=== PATIENT | female | born 1940 | race Caucasian/White ===

== ENCOUNTER 2019-01-05 15:09 | Emergency (ER) | payer MEDICARE ==
[~2019-01-05 15:09] MED LIST: ASPI-555 PO; B CO1CAP PO; BUME1TAB12 PO; BUME2TAB18 PO; CARV3.12 PO; CHOL200012 PO; DIGO125T87 PO; DOCU100C33 PO; INSLAN SQ; INSREG SQ; ISOS30TA6 PO; MULT-1258 PO; NATE60TA8 PO; PANT40TA25 PO; RIVA15TA PO; SIMV40TA59 PO; VIT1CAPS47 PO
[2019-01-05] MEDS ORDERED: ACETAMINOPHEN EXTRA STRENGTH 500 MG TABLET ONE (15:35)
[2019-01-05] MEDS ORDERED: ONDANSETRON HCL 4 MG/2 ML VIAL ONE (15:35)
[2019-01-05] MEDS ORDERED: SODIUM CHLORIDE 0.9% 1000ML 1,000 ML IV ONE (15:35)
[2019-01-05 15:39] LABS: BASOPHILS % (AUTO) 0.7 % (0.0-5.0); HEMATOCRIT 33.5 % (36-48); MEAN CORPUSCULAR HEMOGLOBIN 30.3 pg (27.0-33.0); MEAN CORPUSCULAR HGB CONC 33.3 g/dL (32.0-36.0); MEAN CORPUSCULAR VOLUME 90.9 fL (79-99); MONOCYTES % (AUTO) 12.6 % (3.0-13.0); NEUTROPHILS % (AUTO) 59.7 % (40.0-77.0); PLATELET COUNT (AUTO) 238 K/uL (130-400); RED BLOOD CELL COUNT(AUTO) 3.68 MIL/uL (4.00-5.50); RED CELL DISTRIBUTION WIDTH 13.3 % (11.0-15.5); WHITE BLOOD COUNT (AUTO) 7.8 K/uL (4.8-10.8)
[2019-01-05 16:02] LABS: CREATININE 1.7 mg/dL (0.5-1.5); POTASSIUM 4.1 mmol/L (3.5-5.1)
[2019-01-05 16:07] LABS: ALBUMIN 3.8 g/dL (3.5-5.0); BILIRUBIN,TOTAL 0.6 mg/dL (0.2-1.0); TOTAL PROTEIN, SERUM 7.2 g/dL (6.0-8.3)
== END 2019-01-05 17:53 | disposition home or self-care (01) ==
LOC: EDH 15:09
DX: A08.4 Viral intestinal infection, unspecified (principal); I10 Essential (primary) hypertension; I25.10 Atherosclerotic heart disease of native coronary artery without angina pectoris; E11.9 Type 2 diabetes mellitus without complications; E78.5 Hyperlipidemia, unspecified; Z95.1 Presence of aortocoronary bypass graft; Z79.4 Long term (current) use of insulin
CPT/HCPCS: 36415; 71045; 80053; 85025; 87804 ×2; 96361; 96374; 99284; J2405; J7030

== ENCOUNTER → 2019-06-10 | Outpatient (CLI) | payer MEDICARE ==
[~2019-06-10] MED LIST changes: -BUME1TAB12 PO; +BUME1TAB6 PO; -BUME2TAB18 PO; +BUME2TAB5 PO; +PROP10DR15 OP; +VITA1CAP85 PO
== END | disposition home or self-care (01) ==
LOC: RAH 08:52
PROVIDERS: ATTEND Internal Medicine Cardiovascular Disease
DX: R16.0 Hepatomegaly, not elsewhere classified (principal)
CPT/HCPCS: 76700

== ENCOUNTER 2019-08-08 23:10 | Inpatient (IN) | payer MEDICARE | END 2019-08-14 12:35 | disposition home or self-care (01) | LOC: EDH 23:10 → 2AH 08-14 06:36 → EDHIP 08-09 03:33 → 2CV 08-13 09:31 → 3BH 08-09 05:53 → 2CH 08-13 15:20 → 3CH 08-09 05:54 | PROC: B2111ZZ Fluoroscopy of Multiple Coronary Arteries using Low Osmolar Contrast (ICD-10-PCS; principal; ~2019-08-08) | PROC: 02703DZ Dilation of Coronary Artery, One Artery with Intraluminal Device, Percutaneous Approach (ICD-10-PCS; ~2019-08-08) | PROC: B2131ZZ Fluoroscopy of Multiple Coronary Artery Bypass Grafts using Low Osmolar Contrast (ICD-10-PCS; ~2019-08-08) | PROC: B2151ZZ Fluoroscopy of Left Heart using Low Osmolar Contrast (ICD-10-PCS; ~2019-08-08) | DX: I25.110 Atherosclerotic heart disease of native coronary artery with unstable angina pectoris (principal); N17.9 Acute kidney failure, unspecified; I13.0 Hypertensive heart and chronic kidney disease with heart failure and stage 1 through stage 4 chronic kidney disease, or unspecified chronic kidney disease; I50.32 Chronic diastolic (congestive) heart failure; N18.4 Chronic kidney disease, stage 4 (severe); I25.10 Atherosclerotic heart disease of native coronary artery without angina pectoris; I48.0 Paroxysmal atrial fibrillation ==

== ENCOUNTER 2019-09-15 21:41 | Inpatient (IN) | payer MEDICARE ==
[~2019-09-15] VITALS: Ht 162.6 cm; Wt 57.1 kg
[~2019-09-15 21:41] MED LIST changes: +ACET-66 PO; -B CO1CAP PO; +DIPH25 PO; -DOCU100C33 PO; +FISH1CAP50 PO; +L.AC1CAP6 PO; +ONDA4TAB4 PO; +UBID200C18 PO
[2019-09-15] MEDS ORDERED: CLOPIDOGREL BISULFATE 75 MG TAB ONE (22:13)
[2019-09-15] MEDS ORDERED: NITROGLYCERIN 0.4 MG SL TAB SL ONE (22:14)
[2019-09-15 22:17] LABS: BASOPHILS % (AUTO) 0.6 % (0.0-5.0); EOSINOPHILS % (AUTO) 1.7 % (0.0-8.0); HEMATOCRIT 30.7 % (36-48); LYMPHOCYTES % (AUTO) 25.9 % (21.0-51.0); MEAN CORPUSCULAR HEMOGLOBIN 30.7 pg (27.0-33.0); MEAN CORPUSCULAR HGB CONC 33.9 g/dL (32.0-36.0); MEAN CORPUSCULAR VOLUME 90.5 fL (79-99); MONOCYTES % (AUTO) 7.3 % (3.0-13.0); NEUTROPHILS % (AUTO) 64.5 % (40.0-77.0); PLATELET COUNT (AUTO) 205 K/uL (130-400); WHITE BLOOD COUNT (AUTO) 10.2 K/uL (4.8-10.8)
[2019-09-15 22:23] LABS: POTASSIUM 3.7 mmol/L (3.5-5.1)
[2019-09-15 22:27] LABS: INR 1.15 (0.85-1.15); PARTIAL THROMBOPLASTIN TIME 29.6 SEC (26.3-35.5)
[2019-09-15 22:46] LABS: BILIRUBIN,TOTAL 0.5 mg/dL (0.2-1.0); CREATININE 1.8 mg/dL (0.5-1.5)
[2019-09-15 22:47] LABS: ALBUMIN 3.9 g/dL (3.5-5.0); TOTAL PROTEIN, SERUM 7.3 g/dL (6.0-8.3)
[2019-09-15] MEDS ORDERED: NITROGLYCERIN 1GM/1 INCH PACKET TD ONE (23:45)
[2019-09-16 01:42] LABS: CREATINE KINASE, TOTAL 90 U/L (21-232); MYOGLOBIN 79 ng/mL (10-92); TROPONIN I < 0.04 ng/mL (0.00-0.06)
[2019-09-16] MEDS ORDERED: CLOP75TA14 PO (02:28)
[2019-09-16 04:12] VITALS: BP 126/52
[2019-09-16 04:35] LABS: CREATINE KINASE, TOTAL 80 U/L (21-232); MYOGLOBIN 75 ng/mL (10-92); TROPONIN I < 0.04 ng/mL (0.00-0.06)
[2019-09-16] MEDS ORDERED: NITROGLYCERIN 1GM/1 INCH PACKET TD ONE (06:13)
[2019-09-16] MEDS ORDERED: ONDANSETRON 4 MG TABLET PO PRN (07:30)
[2019-09-16] MEDS ORDERED: ACETAMINOPHEN EXTRA STRENGTH 500 MG TABLET PO PRN (07:30)
[2019-09-16] MEDS ORDERED: DIPHENHYDRAMINE HCL 25 MG CAPSULE PO PRN (07:30)
[2019-09-16] MEDS ORDERED: SODIUM CHLORIDE 0.9% 1000ML 1,000 ML IV SCH (07:45)
[2019-09-16 08:00] VITALS: BP 141/64
[2019-09-16] MEDS: INSULIN HUMULIN R 100 UNIT/ML 3ML SQ SCH ×3 (08:00→17:15)
[2019-09-16] MEDS: NATEGLINIDE 60 MG PO SCH (09:00)
[2019-09-16] MEDS ORDERED: ASPIRIN 325MG EC TAB 325 MG TABLET.DR PO SCH (09:00)
[2019-09-16] MEDS: ARTIFICAL TEARS SOL 15 ML OP SCH ×3 (09:00→19:58)
[2019-09-16] MEDS: CO Q10 PO SCH (09:00)
[2019-09-16] MEDS: VITAMIN D3 PO SCH (09:00)
[2019-09-16] MEDS: PRESERVISION AREDS PO SCH ×2 (09:00→19:57)
[2019-09-16] MEDS: NITROGLYCERIN 1GM/1 INCH PACKET TD SCH ×3 (09:00→19:56)
[2019-09-16] MEDS: LACTOBACILLUS RHAMNOSUS GG 1 EACH CAP.SPRINK PO SCH (09:16)
[2019-09-16] MEDS: FISH OIL 1000 MG/CAP PO SCH (09:16)
[2019-09-16] MEDS: MULTIVITAMIN WITH MINERALS TABLET PO SCH (09:16)
[2019-09-16] MEDS: ISOSORBIDE MONO 30MG TAB SR PO SCH ×2 (09:17→19:55)
[2019-09-16] MEDS: BUMETANIDE 1 MG TAB PO SCH (09:17)
[2019-09-16] MEDS: DIGOXIN 125 MCG TABLET PO SCH (09:17)
[2019-09-16] MEDS: PANTOPRAZOLE SODIUM 40 MG TABLET.DR PO SCH (09:17)
[2019-09-16] MEDS: CLOPIDOGREL BISULFATE 75 MG TAB PO SCH (09:18)
[2019-09-16] MEDS: SIMVASTATIN 20 MG TABLET PO SCH (09:18)
[2019-09-16] MEDS: CARVEDILOL 3.125 MG TABLET PO SCH ×2 (09:19→19:56)
[2019-09-16] MEDS: SODIUM CHLORIDE 0.9% 1000ML 1,000 ML IV SCH ×2 (09:30→19:05)
--- NOTE | 2019-09-16 11:25 | NUR ---
CHEST PAIN PATIENT COMPLAINED OF CHEST PAIN. CLOTH MERCERIZER BACK TENDER REPORTED HR 80 V-PACED RHYTHM. PATIENT DESCRIBES PAIN A SLIGHT PRESSURE MAINLY ON THE CENTER OF HER CHEST. NITRO PATCH APPLIED PER EMAR. BP:154/75. WILL CONTINUE TO MONITOR CLOSELY.
[2019-09-16 12:00] VITALS: BP 142/65
--- NOTE | 2019-09-16 14:40 | NUR ---
DCP CM met with pt discussed dc plans. Pt is independent prior to admission, lives at home alone, daughter lives close by. Denies any equipments/services. Feels safe to go back home, still drives, daughter able to assist with transportation and needs as necessary. Offered possible short term placement rehab if MD recommends, pt declined at this time, prefers to go back home. DC plan to home once stable. CM to cont to follow up. Addendum: 09/16/19 at 1442 by RODRICK PAGE LVN CM Amended: Links added.
[2019-09-16] MEDS ORDERED: BUMETANIDE 1 MG TAB PO SCH (15:00)
[2019-09-16 16:00] VITALS: BP 132/63
[2019-09-16 16:24] LABS: HEMATOCRIT 31.2 % (36-48); MEAN CORPUSCULAR HGB CONC 33.5 g/dL (32.0-36.0); MEAN CORPUSCULAR VOLUME 89.4 fL (79-99); PLATELET COUNT (AUTO) 232 K/uL (130-400); RED BLOOD CELL COUNT(AUTO) 3.49 MIL/uL (4.00-5.50); RED CELL DISTRIBUTION WIDTH 14.4 % (11.0-15.5); WHITE BLOOD COUNT (AUTO) 8.1 K/uL (4.8-10.8)
[2019-09-16 16:41] LABS: CREATININE 1.5 mg/dL (0.5-1.5); MAGNESIUM 2.2 mg/dL (1.80-2.40); PHOSPHORUS 3.6 mg/dL (2.5-4.9); POTASSIUM 3.9 mmol/L (3.5-5.1); URIC ACID 9.2 mg/dL (2.6-7.2)
[2019-09-16 16:56] LABS: % IRON SATURATION 15.5 % (22-44)
[2019-09-16] MEDS ORDERED: INSULIN GLARGINE 100 UNITS/ML 10 ML VIAL SQ SCH (18:00)
[2019-09-16 20:11] VITALS: BP 148/53
[2019-09-16] MEDS ORDERED: ACETYLCYSTEINE 600 MG CAPSULE PO SCH (21:00)
[2019-09-17] VITALS (8 sets, daily range): BP systolic 134–169; BP diastolic 55–67
[2019-09-17] MEDS: NITROGLYCERIN 1GM/1 INCH PACKET TD SCH ×3 (03:21→15:11)
[2019-09-17] MEDS: SODIUM CHLORIDE 0.9% 1000ML 1,000 ML IV SCH ×2 (03:22→13:45)
[2019-09-17] MEDS ORDERED: HEPARIN SODIUM 1000UNIT/ML 10ML VIAL ONE (07:14)
[2019-09-17] MEDS ORDERED: NITROGLYCERIN 5 MG/ML 10 ML VIAL IV ONE (07:14)
[2019-09-17] MEDS ORDERED: IOHEXOL-350 50ML VIAL IV ONE (07:15)
[2019-09-17] MEDS ORDERED: IOHEXOL 350 MG/ML 100ML INFUS..BTL IV ONE (07:15)
[2019-09-17] MEDS ORDERED: MIDAZOLAM HCL 1 MG/ML 2ML VIAL ONE (07:15)
[2019-09-17] MEDS ORDERED: MEPERIDINE-PF 25 MG/ML SYG ONE (07:15)
[2019-09-17] MEDS ORDERED: LIDOCAINE HCL 2% 20ML ONE (07:16)
[2019-09-17 07:25] LABS: APPEARANCE,URINE Clear (CLEAR); BILIRUBIN,URINE Negative (NEGATIVE); COLOR,URINE Yellow (YELLOW); GLUCOSE, URINE (UA) Negative (NEGATIVE); KETONES,URINE Negative (NEGATIVE); LEUKOCYTE ESTERASE ,URINE Moderate (NEGATIVE); NITRATE,URINE Negative (NEGATIVE); OCCULT BLOOD,URINE Negative (NEGATIVE); PROTEIN,URINE Negative (NEGATIVE); UROBILINOGEN,URINE 0.2 mg/dL (0.2-1.0)
[2019-09-17] MEDS ORDERED: SODIUM BICARB 50MEQ 50ML VIAL ONE (07:38)
[2019-09-17 08:00] LABS: BACTERIA,URINE Rare /HPF (None Seen); RBC,URINE 0-1 /HPF (0-1); SQUAMOUS EPITHELIAL CELL,UR Rare /HPF (0-2)
[2019-09-17] MEDS: INSULIN HUMULIN R 100 UNIT/ML 3ML SQ SCH ×2 (08:00→11:51)
[2019-09-17] MEDS ORDERED: SODIUM CHLORIDE 0.9% 1000ML 1,000 ML IV SCH (08:27)
[2019-09-17] MEDS ORDERED: PHARMACY COMMUNICATION MISC SCH (08:30)
[2019-09-17] MEDS: VITAMIN D3 PO SCH (09:00)
[2019-09-17] MEDS: CO Q10 PO SCH (09:00)
[2019-09-17] MEDS: NATEGLINIDE 60 MG PO SCH (09:00)
[2019-09-17] MEDS: ARTIFICAL TEARS SOL 15 ML OP SCH ×2 (09:00→14:00)
[2019-09-17] MEDS: PRESERVISION AREDS PO SCH (09:00)
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
[2019-09-17] MEDS: ISOSORBIDE MONO 30MG TAB SR PO SCH (10:17)
[2019-09-17] MEDS: LACTOBACILLUS RHAMNOSUS GG 1 EACH CAP.SPRINK PO SCH (10:17)
[2019-09-17] MEDS: PANTOPRAZOLE SODIUM 40 MG TABLET.DR PO SCH (10:18)
[2019-09-17] MEDS: CARVEDILOL 3.125 MG TABLET PO SCH (10:18)
[2019-09-17] MEDS: FISH OIL 1000 MG/CAP PO SCH (10:18)
[2019-09-17] MEDS: MULTIVITAMIN WITH MINERALS TABLET PO SCH (10:18)
[2019-09-17] MEDS: CLOPIDOGREL BISULFATE 75 MG TAB PO SCH (10:19)
[2019-09-17] MEDS: DIGOXIN 125 MCG TABLET PO SCH (10:19)
[2019-09-17] MEDS: SIMVASTATIN 20 MG TABLET PO SCH (10:19)
[2019-09-17] MEDS: BUMETANIDE 1 MG TAB PO SCH (10:19)
[2019-09-17] MEDS ORDERED: NITROGLYCERIN 1GM/1 INCH PACKET TD SCH (12:00)
--- NOTE | 2019-09-17 18:13 | NUR ---
DISCHARGE PATIENT GIVEN DISCHARGE INSTRUCTIONS AND EDUCATION ON FOLLOW UP APPOINTMENTS AND ANGINA. PATIENT VERBALIZED UNDERSTANDING OF ALL EDUCATION GIVEN VIA TEACHBACK. NO CONCERNS VOICED. IV DISCONTINUED, CATHETER INTACT. PRESSURE APPLIED TO PREVENT BLEEDING. PATIENT LEFT VIA WHEELCHAIR, NURSE AT SIDE. NO DISTRESS NOTED UPON DISCHARGE. ALL BELONGINGS TAKEN WITH.
[2019-09-17] MEDS ORDERED: RIVAROXABAN 15 MG TABLET PO SCH (21:00)
== END 2019-09-17 18:00 | disposition home or self-care (01) | DRG 287 ==
LOC: EDH 21:41 → EDHIP 09-16 00:22 → 3AH 09-16 01:34
PROVIDERS: ADMIT Internal Medicine Hematology & Oncology; ATTEND Internal Medicine Hematology & Oncology
PROC: B218YZZ Fluoroscopy of Left Internal Mammary Bypass Graft using Other Contrast (ICD-10-PCS; principal; 2019-09-17)
PROC: B212YZZ Fluoroscopy of Single Coronary Artery Bypass Graft using Other Contrast (ICD-10-PCS; 2019-09-17)
PROC: 4A023N7 Measurement of Cardiac Sampling and Pressure, Left Heart, Percutaneous Approach (ICD-10-PCS; 2019-09-17)
PROC: B2111ZZ Fluoroscopy of Multiple Coronary Arteries using Low Osmolar Contrast (ICD-10-PCS; 2019-09-17)
DX: I25.110 Atherosclerotic heart disease of native coronary artery with unstable angina pectoris (principal); I24.9 Acute ischemic heart disease, unspecified; N18.4 Chronic kidney disease, stage 4 (severe); I13.0 Hypertensive heart and chronic kidney disease with heart failure and stage 1 through stage 4 chronic kidney disease, or unspecified chronic kidney disease; E11.22 Type 2 diabetes mellitus with diabetic chronic kidney disease; E78.5 Hyperlipidemia, unspecified; I48.91 Unspecified atrial fibrillation; I50.9 Heart failure, unspecified; E11.21 Type 2 diabetes mellitus with diabetic nephropathy; Z95.0 Presence of cardiac pacemaker; Z79.01 Long term (current) use of anticoagulants; Z95.1 Presence of aortocoronary bypass graft; Z95.5 Presence of coronary angioplasty implant and graft; Z88.6 Allergy status to analgesic agent; Z88.1 Allergy status to other antibiotic agents; Z88.0 Allergy status to penicillin; Z88.7 Allergy status to serum and vaccine; Z88.8 Allergy status to other drugs, medicaments and biological substances
CPT/HCPCS: 36415; 71045; 76770; 80048; 80053; 80162; 81001; 82550; 82948; 83540; 83550; 83735; 83874; 84100; 84484; 84550; 85025; 85027; 85610; 85730; 93005; 93459; C1760; C1894; G0378; J1644; J1815; J2175; J2250; J3490; Q9967

== ENCOUNTER 2019-10-01 16:54 | Inpatient (IN) | payer MEDICARE ==
[~2019-10-01] VITALS: Ht 162.6 cm; Wt 57.0 kg
[2019-10-01 17:48] LABS: EOSINOPHILS % (AUTO) 1.6 % (0.0-8.0); HEMATOCRIT 33.4 % (36-48); LYMPHOCYTES % (AUTO) 26.3 % (21.0-51.0); MEAN CORPUSCULAR HEMOGLOBIN 29.7 pg (27.0-33.0); MEAN CORPUSCULAR HGB CONC 33.2 g/dL (32.0-36.0); MEAN CORPUSCULAR VOLUME 89.5 fL (79-99); MONOCYTES % (AUTO) 7.2 % (3.0-13.0); NEUTROPHILS % (AUTO) 63.9 % (40.0-77.0); PLATELET COUNT (AUTO) 298 K/uL (130-400); RED BLOOD CELL COUNT(AUTO) 3.74 MIL/uL (4.00-5.50)
[2019-10-01 17:58] LABS: CREATININE 1.5 mg/dL (0.5-1.5); POTASSIUM 4.2 mmol/L (3.5-5.1)
[2019-10-01 18:00] LABS: INR 1.11 (0.85-1.15); PARTIAL THROMBOPLASTIN TIME 31.5 SEC (26.3-35.5); PROTHROMBIN TIME 11.6 SEC (9.6-11.6)
[2019-10-01 18:01] LABS: APPEARANCE,URINE Clear (CLEAR); BILIRUBIN,URINE Negative (NEGATIVE); COLOR,URINE Yellow (YELLOW); GLUCOSE, URINE (UA) Negative (NEGATIVE); KETONES,URINE Negative (NEGATIVE); LEUKOCYTE ESTERASE ,URINE Negative (NEGATIVE); NITRATE,URINE Negative (NEGATIVE); OCCULT BLOOD,URINE Negative (NEGATIVE); PROTEIN,URINE Negative (NEGATIVE); UROBILINOGEN,URINE 0.2 mg/dL (0.2-1.0)
[2019-10-01 18:03] LABS: ALBUMIN 4.1 g/dL (3.5-5.0); BILIRUBIN,TOTAL 0.6 mg/dL (0.2-1.0); TOTAL PROTEIN, SERUM 7.8 g/dL (6.0-8.3)
[2019-10-01 18:29] LABS: B-TYPE NATRIURETIC PEPTIDE 274 pg/mL (0-100)
[2019-10-01] MEDS ORDERED: FAMOTIDINE/PF 20 MG/2 ML VIAL IV ONE (21:30)
[2019-10-01 23:00] VITALS: BP 153/68
[2019-10-02 04:00] VITALS: BP 153/67
[2019-10-02] MEDS ORDERED: SODIUM CHLORIDE 0.9% 1000ML 1,000 ML IV SCH (04:15)
[2019-10-02 05:52] LABS: BASOPHILS % (AUTO) 1.2 % (0.0-5.0); EOSINOPHILS % (AUTO) 1.6 % (0.0-8.0); HEMATOCRIT 33.5 % (36-48); LYMPHOCYTES % (AUTO) 25.6 % (21.0-51.0); MEAN CORPUSCULAR HEMOGLOBIN 29.8 pg (27.0-33.0); MEAN CORPUSCULAR HGB CONC 33.1 g/dL (32.0-36.0); MEAN CORPUSCULAR VOLUME 90.3 fL (79-99); MONOCYTES % (AUTO) 7.5 % (3.0-13.0); NEUTROPHILS % (AUTO) 64.1 % (40.0-77.0); PLATELET COUNT (AUTO) 263 K/uL (130-400); RED BLOOD CELL COUNT(AUTO) 3.72 MIL/uL (4.00-5.50); RED CELL DISTRIBUTION WIDTH 13.9 % (11.0-15.5); WHITE BLOOD COUNT (AUTO) 7.8 K/uL (4.8-10.8)
[2019-10-02 06:06] LABS: ALBUMIN 3.5 g/dL (3.5-5.0); BILIRUBIN,TOTAL 0.7 mg/dL (0.2-1.0); CREATININE 1.5 mg/dL (0.5-1.5); POTASSIUM 3.8 mmol/L (3.5-5.1); TOTAL PROTEIN, SERUM 6.9 g/dL (6.0-8.3)
[2019-10-02] MEDS ORDERED: SODIUM CHLORIDE 0.9% 1000ML 1,000 ML IV ONE (06:38)
[2019-10-02 08:00] VITALS: BP 163/65
--- NOTE | 2019-10-02 08:16 | NUR ---
NOTIFIED DR. GUZMAN OF THE CONSULT HE VERBALIZED THAT HE WILL COME SEE THE PATIENT IN THE AFTERNOON.
[2019-10-02] MEDS ORDERED: MORPHINE SULFATE 2 MG/ML 1ML SYG IM PRN (08:30)
[2019-10-02] MEDS: FAMOTIDINE/PF 20 MG/2 ML VIAL IV SCH (09:00)
[2019-10-02] MEDS ORDERED: ONDANSETRON ODT 4 MG TAB SL PRN (09:45)
[2019-10-02 12:00] VITALS: BP 142/54
--- NOTE | 2019-10-02 12:17 | NUR ---
DCP CM met with pt discussed dc plans. Pt is independent prior to admission, lives at home alone, family lives close by, son lives [place]. Pt has a walker, shower chair, wheelchair, cpap. Pt states she used to have O2 but the Dr told her she no longer needs it and was returned to [facility]. Patient states she has 3 children w/POA #1dauter Latisha Rojas [phone], #2 son Narciso [phone], #3 Adrian Rojas . Feels safe to go back home, family able to assist with transportation and needs as necessary. DC plan to home once stable. CM to cont to follow up. Addendum: 10/02/19 at 1221 by RODRICK PAGE LVN CM Amended: Links added.
[2019-10-02 16:00] VITALS: BP 133/64
--- NOTE | 2019-10-02 16:15 | NUR ---
U/S PSEUDOANEURYSM REPAIR ORDERED. NOT DONE ULTRASOUND OF THE RIGHT GROIN PERFORMED ON 10/01/19. CALLED AND SPOKE TO DR. GOMEZ RESULTS OF ULTRASOUND GIVEN TO DR. GOMEZ. DR. GOMEZ STATES, "TOO RISKY TO PERFORM A PSEUDOANEURYSM AND REPEAT AN ULTRASOUND OF RIGHT GROIN PSEUDOANEURYSM ON Saturday10/05/19. CALLED REPORT TO ALEXANDRO WALLACE.
--- NOTE | 2019-10-02 16:32 | NUR ---
notified dr. devine that ir notified me that dr. lamar the interventional radiologist will not do intervention at this point, recommends repeat US of the right groin on saturday10/05/19
[2019-10-02 19:10] VITALS: BP 157/65
[2019-10-03] VITALS (10 sets, daily range): BP systolic 143–172; BP diastolic 56–76
--- NOTE | 2019-10-03 08:32 | NUR ---
PATIENT UPDATE No complaints of rt groin pain overnight, no chest pain, no shortness of breath. Anticoagulants on hold as per the order of the psychosocial rehabilitation counselor, pending repeat ultrasound Saturday to reassess the status. Pt voiced out need to take her meds back, will remind md today on rounds.
[2019-10-03] MEDS: FAMOTIDINE/PF 20 MG/2 ML VIAL IV SCH (09:11)
[2019-10-03] MEDS: ACETAMINOPHEN EXTRA STRENGTH 500 MG TABLET PO PRN (13:31)
[2019-10-03] MEDS: PROPYLENE GLYCOL OP SCH ×2 (14:00→20:49)
[2019-10-03] MEDS ORDERED: NITROGLYCERIN 0.4 MG SL TAB SL ONE (15:40)
[2019-10-03] MEDS ORDERED: NITROGLYCERIN 0.4 MG SL TAB SL PRN (16:00)
[2019-10-03] MEDS: MULTIVITAMINS/MINERALS/IRO TAB PO SCH (17:00)
[2019-10-03] MEDS: INSULIN GLARGINE 100 UNITS/ML 10 ML VIAL SQ SCH ×2 (17:24→17:28)
[2019-10-03] MEDS: DIGOXIN 125 MCG TABLET PO SCH (17:34)
[2019-10-03] MEDS: ISOSORBIDE MONO 30MG TAB SR PO SCH (20:45)
[2019-10-03] MEDS: SIMVASTATIN 20 MG TABLET PO SCH (20:45)
[2019-10-03] MEDS: CARVEDILOL 3.125 MG TABLET PO SCH (20:46)
[2019-10-03] MEDS ORDERED: BUMETANIDE 1 MG TAB PO SCH (21:00)
[2019-10-04 03:41] VITALS: BP 137/59
[2019-10-04 07:00] VITALS: BP 116/58
[2019-10-04] MEDS: MULTIVITAMINS/MINERALS/IRO TAB PO SCH ×2 (08:00→17:00)
[2019-10-04] MEDS: BUMETANIDE 1 MG TAB PO SCH ×2 (08:17→17:00)
[2019-10-04] MEDS: FISH OIL 1000 MG/CAP PO SCH (08:18)
[2019-10-04] MEDS: MULTIVITAMIN WITH MINERALS TABLET PO SCH (08:18)
[2019-10-04] MEDS: ISOSORBIDE MONO 30MG TAB SR PO SCH ×2 (08:18→22:20)
[2019-10-04] MEDS: FAMOTIDINE/PF 20 MG/2 ML VIAL IV SCH (08:19)
[2019-10-04] MEDS: PROPYLENE GLYCOL OP SCH ×3 (09:00→21:00)
[2019-10-04] MEDS: NATEGLINIDE 60 MG PO SCH (09:00)
[2019-10-04] MEDS: UBIDECARENONE 200 MG PO SCH (09:00)
[2019-10-04] MEDS: CHOLECALCIFEROL 2000 UNIT PO SCH (09:00)
--- NOTE | 2019-10-04 09:00 | NUR ---
DISCUSSED DISPOSTION WITH ALEXANDRO WHO STATES PT IS IND; APPEARS SAFE TO DC TO HOME. YOHANA SARAVIA CONSULT TODAY FOR PSUEDO ANEURYSM Addendum: 10/04/19 at 1555 by KASIA FLOYD RN CM Amended: Links added.
[2019-10-04] MEDS: LACTOBACILLUS RHAMNOSUS GG 1 EACH CAP.SPRINK PO SCH (09:31)
[2019-10-04] MEDS: CARVEDILOL 3.125 MG TABLET PO SCH ×2 (09:31→22:21)
[2019-10-04] MEDS ORDERED: POLYETHYLENE GLYCOL 3350 17 GM POWD.PACK ONE (09:33)
[2019-10-04 11:00] VITALS: BP 134/60
[2019-10-04] MEDS: ACETAMINOPHEN EXTRA STRENGTH 500 MG TABLET PO PRN (11:48)
[2019-10-04 16:00] VITALS: BP 128/66
[2019-10-04] MEDS ORDERED: DiphenhydrAMINE HCL 50 MG/ML VIAL IV PRN (16:15)
[2019-10-04] MEDS: DIGOXIN 125 MCG TABLET PO SCH (17:01)
[2019-10-04] MEDS: INSULIN GLARGINE 100 UNITS/ML 10 ML VIAL SQ SCH (18:00)
--- NOTE | 2019-10-04 19:30 | NUR ---
STATUS Received report from Jocelynn Mejias,pt appears drowsy,as per day nurse she gave her Benadryl earlier.Pt denies pain or sob.Aware of pending surgery in am.Instructed resident program specialist re pre op shower/clipping and Npo after midnight status.
[2019-10-04 20:00] VITALS: BP 159/62
[2019-10-04] MEDS: SIMVASTATIN 20 MG TABLET PO SCH (22:20)
[2019-10-04] MEDS: POLYETHYLENE GLYCOL 3350 17 GM POWD.PACK PO SCH (22:21)
[2019-10-05] VITALS (25 sets, daily range): BP systolic 109–153; BP diastolic 45–76
[2019-10-05 06:13] LABS: BASOPHILS % (AUTO) 0.4 % (0.0-5.0); EOSINOPHILS % (AUTO) 0.5 % (0.0-8.0); HEMATOCRIT 27.8 % (36-48); LYMPHOCYTES % (AUTO) 17.4 % (21.0-51.0); MEAN CORPUSCULAR HEMOGLOBIN 30.3 pg (27.0-33.0); MEAN CORPUSCULAR HGB CONC 33.8 g/dL (32.0-36.0); MEAN CORPUSCULAR VOLUME 89.8 fL (79-99); MONOCYTES % (AUTO) 10.9 % (3.0-13.0); NEUTROPHILS % (AUTO) 70.8 % (40.0-77.0); PLATELET COUNT (AUTO) 221 K/uL (130-400); RED CELL DISTRIBUTION WIDTH 13.7 % (11.0-15.5); WHITE BLOOD COUNT (AUTO) 11.6 K/uL (4.8-10.8)
[2019-10-05 06:21] LABS: CREATININE 1.5 mg/dL (0.5-1.5); POTASSIUM 3.3 mmol/L (3.5-5.1)
--- NOTE | 2019-10-05 06:45 | NUR ---
SURGERY Pt taken to holding area per OR staff,pt awake,alert and oriented.Denies chest pain or discomfort.Or staff made aware of pt.s K+ level,states will let anesthesia know.
[2019-10-05] MEDS ORDERED: SODIUM CHLORIDE 0.9% 1000ML 1,000 ML IV ONE (06:50)
--- NOTE | 2019-10-05 06:50 | NUR ---
Report received Patient WAS TAKING off unit to holding area for surgery
[2019-10-05] MEDS ORDERED: PROPOFOL 10 MG/ML 20ML VIAL IV ONE (07:03)
[2019-10-05] MEDS ORDERED: ROCURONIUM 10MG/1ML SYR 10 MG/ML ML ONE (07:03)
[2019-10-05] MEDS ORDERED: FENTANYL CITRATE PF 50 MCG/1 ML 2ML VIAL ONE ×2 (07:03→10:02)
[2019-10-05] MEDS ORDERED: LIDOCAINE PF 2% 5ML ABBOJECT ONE (07:03)
[2019-10-05] MEDS: LACTOBACILLUS RHAMNOSUS GG 1 EACH CAP.SPRINK PO SCH (07:33)
[2019-10-05] MEDS: MULTIVITAMINS/MINERALS/IRO TAB PO SCH ×2 (07:33→18:01)
[2019-10-05] MEDS ORDERED: PHENYLEPHRINE HCL 10 MG/ML 1ML VIAL IV ONE (07:40)
[2019-10-05] MEDS ORDERED: CLINDAMYCIN 900 MG/D5% WATER 50 ML IV ONE (07:46)
[2019-10-05] MEDS: NATEGLINIDE 60 MG PO SCH (09:00)
[2019-10-05] MEDS: PROPYLENE GLYCOL OP SCH ×3 (09:00→21:00)
[2019-10-05] MEDS: CHOLECALCIFEROL 2000 UNIT PO SCH (09:00)
[2019-10-05] MEDS: FAMOTIDINE/PF 20 MG/2 ML VIAL IV SCH (09:00)
[2019-10-05] MEDS: FISH OIL 1000 MG/CAP PO SCH (09:00)
[2019-10-05] MEDS: ISOSORBIDE MONO 30MG TAB SR PO SCH ×2 (09:00→20:56)
[2019-10-05] MEDS: MULTIVITAMIN WITH MINERALS TABLET PO SCH (09:00)
[2019-10-05] MEDS: POLYETHYLENE GLYCOL 3350 17 GM POWD.PACK PO SCH (09:00)
[2019-10-05] MEDS: CARVEDILOL 3.125 MG TABLET PO SCH ×2 (09:00→20:57)
[2019-10-05] MEDS: BUMETANIDE 1 MG TAB PO SCH ×2 (09:00→18:01)
[2019-10-05] MEDS ORDERED: GLYCOPYRROLATE 1 MG/5 ML SYRINGE ONE (09:14)
[2019-10-05] MEDS ORDERED: NEOSTIGMINE 5MG/5ML SYR IV ONE (09:14)
[2019-10-05] MEDS ORDERED: ONDANSETRON HCL 4 MG/2 ML VIAL ONE (09:24)
--- NOTE | 2019-10-05 09:35 | NUR ---
PULSES TO BILATERAL FEET, PALPABLE. PT STABLE. Addendum: 10/05/19 at 1027 by KADE SIERRA RN RN Amended: Links added.
--- NOTE | 2019-10-05 09:50 | NUR ---
CHART REVIEWED, PT WILL BE TRANSFERRED TO PCCU POST OP. CM NOTES FORWARDED TO NEW CM
--- NOTE | 2019-10-05 12:00 | NUR ---
POST PROCEDURE RECEIVED PT FROM PACU, IN SEMI FRAIRE'S POSITION, ASLEEP BUT AROUSEABLE, A&OX3, CALM COOPERATIVE AND DOES NOT APPEAR TO BE IN ANY DISTRESS NOR ANY NEURO DEFICITS PRESENT. RT GROIN SOFT WITH NO OOZING OR HEMATOMA PRESENT, DRESSING DRY AND INTACT. DP/PT PULSES PALPABLE. PT RESTING COMFORTABLY, CALL LIGHT WITHIN REACH, FAMILY AT BEDSIDE.
[2019-10-05] MEDS: UBIDECARENONE 200 MG PO SCH (15:30)
[2019-10-05] MEDS: INSULIN GLARGINE 100 UNITS/ML 10 ML VIAL SQ SCH (18:00)
[2019-10-05] MEDS: CLOPIDOGREL BISULFATE 75 MG TAB PO SCH (18:01)
[2019-10-05] MEDS: DIGOXIN 125 MCG TABLET PO SCH (18:01)
--- NOTE | 2019-10-05 20:00 | NUR ---
DRESSING TO RT GROIN CLEAN, DRY, AND INTACT. SITE APPEARS SOFT TO PALPATION. PEDAL PULSES PALPABLE
[2019-10-05] MEDS: SIMVASTATIN 20 MG TABLET PO SCH (20:57)
--- NOTE | 2019-10-06 00:05 | NUR ---
RT GROIN DRESSING CLEAN, DRY, AND INTACT. SITE APPEARS SOFT TO PALPATION. PEDAL PULSES PALPABLE
[2019-10-06 03:25] VITALS: BP 124/57
[2019-10-06 04:33] LABS: MEAN CORPUSCULAR HEMOGLOBIN 30.2 pg (27.0-33.0); MEAN CORPUSCULAR HGB CONC 33.7 g/dL (32.0-36.0); MEAN CORPUSCULAR VOLUME 89.7 fL (79-99); PLATELET COUNT (AUTO) 227 K/uL (130-400); RED BLOOD CELL COUNT(AUTO) 3.12 MIL/uL (4.00-5.50); RED CELL DISTRIBUTION WIDTH 13.6 % (11.0-15.5)
[2019-10-06 05:05] LABS: CREATININE 1.5 mg/dL (0.5-1.5); POTASSIUM 3.8 mmol/L (3.5-5.1)
--- NOTE | 2019-10-06 06:04 | NUR ---
MALOU WELLS'Effie PER ORDERS.
[2019-10-06 07:00] VITALS: BP 144/54
--- NOTE | 2019-10-06 07:45 | NUR ---
ASSESSMENT ENCOUNTERED PT SITTING ON SIDE OF BED, A&OX3, CALM COOPERATIVE AND DOES NOT APPEAR TO BE IN ANY DISTRESS NOR ANY NEURO DEFICITS PRESENT. RT GROIN DRESSING DRY AND INTACT. DP/PT PULSES PALPABLE. DR AYALA AT BEDSIDE, UPDATE GIVEN, ORDERS RECEIVED FOR OK FROM [facility] STAND POINT FOR DISCHARGE. CALL LIGHT WITHIN REACH.
[2019-10-06] MEDS: LACTOBACILLUS RHAMNOSUS GG 1 EACH CAP.SPRINK PO SCH (08:53)
[2019-10-06] MEDS: CLOPIDOGREL BISULFATE 75 MG TAB PO SCH (08:53)
[2019-10-06] MEDS: FISH OIL 1000 MG/CAP PO SCH (08:53)
[2019-10-06] MEDS: MULTIVITAMIN WITH MINERALS TABLET PO SCH (08:53)
[2019-10-06] MEDS: FAMOTIDINE/PF 20 MG/2 ML VIAL IV SCH (08:53)
[2019-10-06] MEDS: MULTIVITAMINS/MINERALS/IRO TAB PO SCH (08:53)
[2019-10-06] MEDS: CARVEDILOL 3.125 MG TABLET PO SCH (08:54)
[2019-10-06] MEDS: BUMETANIDE 1 MG TAB PO SCH (08:54)
[2019-10-06] MEDS: ISOSORBIDE MONO 30MG TAB SR PO SCH (08:55)
[2019-10-06] MEDS: POLYETHYLENE GLYCOL 3350 17 GM POWD.PACK PO SCH (08:55)
[2019-10-06] MEDS: DIGOXIN 125 MCG TABLET PO SCH (08:55)
[2019-10-06] MEDS: UBIDECARENONE 200 MG PO SCH (09:00)
[2019-10-06] MEDS: CHOLECALCIFEROL 2000 UNIT PO SCH (09:00)
[2019-10-06] MEDS ORDERED: CLOPIDOGREL BISULFATE 75 MG TAB PO SCH (09:00)
[2019-10-06] MEDS: PROPYLENE GLYCOL OP SCH ×2 (09:00→14:00)
[2019-10-06 11:00] VITALS: BP 132/48
--- NOTE | 2019-10-06 11:03 | NUR ---
mariella OSUNA RN- patient is pending to be DC today. Addendum: 10/06/19 at 1105 by STEFFANIE MARION PT PT Amended: Links added.
--- NOTE | 2019-10-06 15:51 | NUR ---
DISCHARGE INSTRUCTIONS GIVEN REGARDING RESUMING XARELTO ON Saturday10/08/[address] CODY'S INSTRUCTIONS, TO NOTIFY MD OF ANY BLEEDING, SWELLING OR PAIN TO RT GROIN AND OF ANY BLEEDING WITH STOOL, EMESIS AND/OR URINE. PIVS REMOVED AND INTACT, DISCHARGED HOME TO FAMILY VEHICLE VIA WHEELCHAIR.
== END 2019-10-06 16:00 | disposition home or self-care (01) | DRG 253 ==
LOC: EDH 16:54 → EDHIP 19:41 → 3DH 22:15 → 2DH 10-05 11:04
PROVIDERS: ADMIT Internal Medicine; ATTEND Internal Medicine
PROC: 04JY0ZZ Inspection of Lower Artery, Open Approach (ICD-10-PCS; principal; 2019-10-05 07:14)
DX: I72.4 Aneurysm of artery of lower extremity (principal); N18.4 Chronic kidney disease, stage 4 (severe); I13.0 Hypertensive heart and chronic kidney disease with heart failure and stage 1 through stage 4 chronic kidney disease, or unspecified chronic kidney disease; I48.20 Chronic atrial fibrillation, unspecified; I50.32 Chronic diastolic (congestive) heart failure; E11.22 Type 2 diabetes mellitus with diabetic chronic kidney disease; I25.10 Atherosclerotic heart disease of native coronary artery without angina pectoris; D64.9 Anemia, unspecified; E78.5 Hyperlipidemia, unspecified; I48.0 Paroxysmal atrial fibrillation; Z95.0 Presence of cardiac pacemaker; Z79.01 Long term (current) use of anticoagulants; Z79.02 Long term (current) use of antithrombotics/antiplatelets; Z79.4 Long term (current) use of insulin; Z80.1 Family history of malignant neoplasm of trachea, bronchus and lung; Z95.1 Presence of aortocoronary bypass graft; Z95.5 Presence of coronary angioplasty implant and graft; Z88.1 Allergy status to other antibiotic agents; Z88.0 Allergy status to penicillin; Z88.7 Allergy status to serum and vaccine; Z88.8 Allergy status to other drugs, medicaments and biological substances
CPT/HCPCS: 36415; 71045; 76882; 80048; 80053; 81003; 82550; 82948; 83880; 84484; 85025; 85027; 85610; 85730; 86850; 86900; 86901; 86922; 93005; A4344; G0378; J1200; J1644; J2001; J2370; J2405; J2704; J2710; J3010; J3490; J7030; J7040

== ENCOUNTER → 2019-10-01 | Outpatient (CLI) | payer MEDICARE ==
[~2019-10-01] MED LIST changes: -ASPI-555 PO; +CLOP75TA14 PO; -VITA1CAP85 PO
== END | disposition home or self-care (01) ==
LOC: RAH 12:45
PROVIDERS: ATTEND Internal Medicine Cardiovascular Disease
DX: I72.4 Aneurysm of artery of lower extremity (principal); Q27.8 Other specified congenital malformations of peripheral vascular system
CPT/HCPCS: 76882

== ENCOUNTER → 2020-11-11 | Outpatient (CLI) | payer MEDICARE ==
[~2020-11-11] MED LIST changes: +ASPI-1443 PO; +CHOL-9 PO; +DIGO125T71 PO; -DIGO125T87 PO; +FOLI0.8T22 PO; +KRIL1CAP35 PO; +LIDOCAINE HCL 1% 20 ML VIAL ONE; -PANT40TA25 PO; +PANT40TA54 PO; +PHENYLEPHRINE HCL 10 MG/ML 1ML VIAL IV ONE; +POLY17PO4 PO; +PROPOFOL 10 MG/ML 20ML VIAL IV ONE; +ROCURONIUM BROMIDE 10MG/1ML 5ML VL ONE; +SUPER B COMPLEX PO
[2020-11-11 12:36] LABS: BASOPHILS % (AUTO) 0.6 % (0.0-5.0); EOSINOPHILS % (AUTO) 1.3 % (0.0-8.0); HEMATOCRIT 33.6 % (36-48); LYMPHOCYTES % (AUTO) 17.9 % (21.0-51.0); MEAN CORPUSCULAR HEMOGLOBIN 30.4 pg (27.0-33.0); MEAN CORPUSCULAR HGB CONC 31.5 g/dL (32.0-36.0); MEAN CORPUSCULAR VOLUME 96.3 fL (79-99); MONOCYTES % (AUTO) 5.4 % (3.0-13.0); NEUTROPHILS % (AUTO) 74.4 % (40.0-77.0); PLATELET COUNT (AUTO) 266 K/uL (130-400); RED BLOOD CELL COUNT(AUTO) 3.49 MIL/uL (4.00-5.50); RED CELL DISTRIBUTION WIDTH 12.9 % (11.0-15.5); WHITE BLOOD COUNT (AUTO) 9.7 K/uL (4.8-10.8)
[2020-11-11 12:53] LABS: CREATININE 1.5 mg/dL (0.5-1.5); POTASSIUM 4.1 mmol/L (3.5-5.1)
[2020-11-11 12:55] LABS: INR 1.21 (0.85-1.15); PROTHROMBIN TIME 12.8 SEC (9.6-11.6)
== END | disposition home or self-care (01) ==
LOC: DAH 10:00 → EDSTATUS 11-15 15:00
PROVIDERS: ATTEND Internal Medicine Cardiovascular Disease
DX: Z01.810 Encounter for preprocedural cardiovascular examination (principal); Z20.828 Contact with and (suspected) exposure to other viral communicable diseases; Z88.8 Allergy status to other drugs, medicaments and biological substances; Z79.01 Long term (current) use of anticoagulants
CPT/HCPCS: 36415; 80048; 85025; 85610; 85730; 93005; C9803; U0003; J2370; J2704; J3490

== ENCOUNTER 2021-01-04 10:59 | Emergency (ER) | payer MEDICARE ==
[~2021-01-04 10:59] MED LIST changes: -ACET-66 PO; -BUME2TAB5 PO; -CHOL200012 PO; -FISH1CAP50 PO; -INSLAN SQ; -ISOS30TA6 PO; +ISOS30TA92 PO; -LIDOCAINE HCL 1% 20 ML VIAL ONE; -ONDA4TAB4 PO; -PHENYLEPHRINE HCL 10 MG/ML 1ML VIAL IV ONE; -PROP10DR15 OP; -PROPOFOL 10 MG/ML 20ML VIAL IV ONE; -ROCURONIUM BROMIDE 10MG/1ML 5ML VL ONE; -VIT1CAPS47 PO
[2021-01-04] MEDS ORDERED: TETANUS/DIPHTHERIA TOXOID [ADULT] 0.5 ML VIAL IM ONE (13:46)
== END 2021-01-04 14:00 | disposition home or self-care (01) ==
LOC: EDH 10:59
DX: S61.217A Laceration without foreign body of left little finger without damage to nail, initial encounter (principal); I10 Essential (primary) hypertension; E11.9 Type 2 diabetes mellitus without complications; I25.10 Atherosclerotic heart disease of native coronary artery without angina pectoris; E78.5 Hyperlipidemia, unspecified; W23.0XXA Caught, crushed, jammed, or pinched between moving objects, initial encounter; Y93.89 Activity, other specified; Y92.89 Other specified places as the place of occurrence of the external cause; Y99.8 Other external cause status
CPT/HCPCS: 12001; 73130; 90471; 90714

== ENCOUNTER 2021-01-12 07:59 | Emergency (ER) | payer MEDICARE | END 2021-01-12 08:58 | disposition home or self-care (01) | LOC: EDH 07:59 | DX: Z48.02 Encounter for removal of sutures (principal); I25.10 Atherosclerotic heart disease of native coronary artery without angina pectoris; E11.9 Type 2 diabetes mellitus without complications; I10 Essential (primary) hypertension; E78.5 Hyperlipidemia, unspecified; Z88.6 Allergy status to analgesic agent; Z88.8 Allergy status to other drugs, medicaments and biological substances; Z88.2 Allergy status to sulfonamides; Z88.1 Allergy status to other antibiotic agents; Z88.5 Allergy status to narcotic agent; Z88.0 Allergy status to penicillin | CPT/HCPCS: 99281 ==

== ENCOUNTER → 2022-02-20 | Outpatient (CLI) | payer MEDICARE ==
[~2022-02-20] MED LIST changes: +NATE60TA14 PO; -NATE60TA8 PO
== END | disposition home or self-care (01) ==
LOC: SHCH 08:00
PROVIDERS: ATTEND Internal Medicine Cardiovascular Disease
DX: I70.293 Other atherosclerosis of native arteries of extremities, bilateral legs (principal)
CPT/HCPCS: 93925

== ENCOUNTER 2022-04-13 12:17 | Observation (INO) | payer MEDICARE ==
[~2022-04-13] VITALS: Ht 162.6 cm; Wt 59.0 kg
[2022-04-13] MEDS ORDERED: NITROGLYCERIN 1GM OINT 1 INCH/1GM TD ONE (12:30)
[2022-04-13 12:55] LABS: HEMATOCRIT 36.9 % (36-48); MEAN CORPUSCULAR HEMOGLOBIN 31.8 pg (27.0-33.0); MEAN CORPUSCULAR HGB CONC 32.8 g/dL (32.0-36.0); MEAN CORPUSCULAR VOLUME 97.1 fL (79-99); RED CELL DISTRIBUTION WIDTH 11.8 % (11.0-15.5)
[2022-04-13 12:56] LABS: BASOPHILS % (AUTO) 0.4 % (0.0-5.0); EOSINOPHILS % (AUTO) 1.3 % (0.0-8.0); LYMPHOCYTES % (AUTO) 11.6 % (21.0-51.0); MONOCYTES % (AUTO) 7.7 % (3.0-13.0); NEUTROPHILS % (AUTO) 78.6 % (40.0-77.0); PLATELET COUNT (AUTO) 231 K/uL (130-400)
[2022-04-13 12:59] LABS: CREATININE 1.5 mg/dL (0.5-1.5); POTASSIUM 3.9 mmol/L (3.5-5.1)
[2022-04-13 13:04] LABS: ALBUMIN 4.6 g/dL (3.5-5.0); BILIRUBIN,TOTAL 0.6 mg/dL (0.2-1.0); TOTAL PROTEIN, SERUM 8.2 g/dL (6.0-8.3)
[2022-04-13 13:27] LABS: APPEARANCE,URINE Clear (CLEAR); BILIRUBIN,URINE Negative (NEGATIVE); COLOR,URINE Yellow (YELLOW); GLUCOSE, URINE (UA) Negative (NEGATIVE); KETONES,URINE Negative (NEGATIVE); LEUKOCYTE ESTERASE ,URINE Small (NEGATIVE); NITRATE,URINE Negative (NEGATIVE); OCCULT BLOOD,URINE Negative (NEGATIVE); PROTEIN,URINE Negative (NEGATIVE); UROBILINOGEN,URINE 0.2 mg/dL (0.2-1.0)
[2022-04-13 13:56] LABS: BACTERIA,URINE Rare /HPF (None Seen); RBC,URINE None Seen /HPF (0-1); WBC,URINE 0-1 /HPF (0-1)
[2022-04-13 13:57] LABS: SQUAMOUS EPITHELIAL CELL,UR 0-2 /HPF (0-2)
[2022-04-13] MEDS ORDERED: 0.9%NACL 1000ML 1,000 ML IV SCH (15:00)
[2022-04-13 15:45] VITALS: BP 187/69
[2022-04-13] MEDS: NITROGLYCERIN 1GM OINT 1 INCH/1GM TD SCH (18:14)
[2022-04-13 19:17] VITALS: BP 153/58
[2022-04-13 22:59] VITALS: BP 136/58
[2022-04-14] MEDS: NITROGLYCERIN 1GM OINT 1 INCH/1GM TD SCH ×2 (00:41→06:24)
[2022-04-14] MEDS ORDERED: LETR2.5T7 PO (00:53)
[2022-04-14] MEDS ORDERED: CARV6.25 PO (01:08)
[2022-04-14 04:05] VITALS: BP 137/58
[2022-04-14 07:00] VITALS: BP 123/57
[2022-04-14] MEDS ORDERED: LETROZOLE 2.5 MG PO SCH (09:00)
[2022-04-14] MEDS ORDERED: ISOSORBIDE MONO 30MG SR TAB PO SCH (09:00)
[2022-04-14] MEDS ORDERED: CARVEDILOL 6.25 MG TABLET PO SCH (09:00)
[2022-04-14] MEDS ORDERED: VITAMIN B COMPLEX 1 CAPSULE PO SCH (09:00)
[2022-04-14] MEDS ORDERED: CHOLECALCIFEROL 250 MCG PO SCH (09:00)
[2022-04-14] MEDS ORDERED: UBIDECARENONE 200 MG PO SCH (09:00)
[2022-04-14] MEDS ORDERED: Vitamin B Complex/Vit C/Folic Acid PO SCH (09:00)
[2022-04-14] MEDS ORDERED: RIVAROXABAN 15 MG TABLET PO SCH (09:00)
[2022-04-14] MEDS ORDERED: BUMETANIDE 1 MG TAB PO SCH (09:00)
[2022-04-14] MEDS ORDERED: DIGOXIN 125 MCG TABLET PO SCH (09:00)
[2022-04-14] MEDS ORDERED: FISH OIL 1000 MG/CAP PO SCH (09:00)
[2022-04-14] MEDS ORDERED: NATEGLINIDE 60 MG PO SCH (17:00)
[2022-04-14] MEDS ORDERED: SIMVASTATIN 20 MG TABLET PO SCH (21:00)
== END 2022-04-14 08:55 | disposition home or self-care (01) ==
LOC: EDH 12:17 → EDHIP 13:40 → 2AH 15:52
PROVIDERS: ADMIT Internal Medicine Hematology & Oncology; ATTEND Internal Medicine Hematology & Oncology
DX: I25.110 Atherosclerotic heart disease of native coronary artery with unstable angina pectoris (principal); I24.9 Acute ischemic heart disease, unspecified; I48.20 Chronic atrial fibrillation, unspecified; I35.1 Nonrheumatic aortic (valve) insufficiency; E11.9 Type 2 diabetes mellitus without complications; I10 Essential (primary) hypertension; E78.5 Hyperlipidemia, unspecified; Z95.0 Presence of cardiac pacemaker; Z79.01 Long term (current) use of anticoagulants; Z95.5 Presence of coronary angioplasty implant and graft; X50.0XXA Overexertion from strenuous movement or load, initial encounter; Y93.89 Activity, other specified; Y92.89 Other specified places as the place of occurrence of the external cause
CPT/HCPCS: 36415; 71045; 80053; 81001; 82550; 83690; 83880; 84484 ×4; 85025; 93005; 99285; G0378 ×19

== ENCOUNTER → 2022-05-01 | Outpatient (CLI) | payer MEDICARE ==
[~2022-05-01] MED LIST changes: -ASPI-1443 PO; -CARV3.12 PO; +CARV6.25 PO; -CLOP75TA14 PO; -L.AC1CAP6 PO; +LETR2.5T7 PO; -MULT-1258 PO; -PANT40TA54 PO; -POLY17PO4 PO; +REGADENOSON 0.4 MG/5 ML PF SYG IVP SCH
== END | disposition home or self-care (01) ==
LOC: SHCH 07:55
PROVIDERS: ATTEND Internal Medicine Cardiovascular Disease
DX: R07.9 Chest pain, unspecified (principal); Z95.0 Presence of cardiac pacemaker
CPT/HCPCS: 78452; 93017; 96374; A9500 ×2; J2785

== ENCOUNTER 2022-07-26 16:22 | Observation (INO) | payer MEDICARE ==
[~2022-07-26] VITALS: Ht 162.6 cm; Wt 58.8 kg
[~2022-07-26 16:22] MED LIST changes: -REGADENOSON 0.4 MG/5 ML PF SYG IVP SCH
[2022-07-26 17:13] LABS: BASOPHILS % (AUTO) 0.5 % (0.0-5.0); EOSINOPHILS % (AUTO) 2.7 % (0.0-8.0); HEMATOCRIT 34.5 % (36-48); LYMPHOCYTES % (AUTO) 15.8 % (21.0-51.0); MEAN CORPUSCULAR HEMOGLOBIN 31.1 pg (27.0-33.0); MEAN CORPUSCULAR HGB CONC 32.5 g/dL (32.0-36.0); MEAN CORPUSCULAR VOLUME 95.8 fL (79-99); MONOCYTES % (AUTO) 7.1 % (3.0-13.0); NEUTROPHILS % (AUTO) 73.6 % (40.0-77.0); PLATELET COUNT (AUTO) 214 K/uL (130-400); RED CELL DISTRIBUTION WIDTH 12.4 % (11.0-15.5); WHITE BLOOD COUNT (AUTO) 9.9 K/uL (4.8-10.8)
[2022-07-26 17:23] LABS: CREATININE 1.5 mg/dL (0.5-1.5); POTASSIUM 3.9 mmol/L (3.5-5.1)
[2022-07-26 17:28] LABS: MAGNESIUM 2.3 mg/dL (1.80-2.40); TOTAL PROTEIN, SERUM 7.5 g/dL (6.0-8.3)
[2022-07-26 17:35] LABS: B-TYPE NATRIURETIC PEPTIDE 158 pg/mL (0-100)
[2022-07-26 18:14] LABS: APPEARANCE,URINE CLEAR (CLEAR); BILIRUBIN,URINE NEGATIVE (NEGATIVE); COLOR,URINE YELLOW (YELLOW); GLUCOSE, URINE (UA) NEGATIVE (NEGATIVE); KETONES,URINE NEGATIVE (NEGATIVE); LEUKOCYTE ESTERASE ,URINE SMALL (NEGATIVE); NITRATE,URINE NEGATIVE (NEGATIVE); OCCULT BLOOD,URINE NEGATIVE (NEGATIVE); PROTEIN,URINE NEGATIVE (NEGATIVE); UROBILINOGEN,URINE 0.2 mg/dL (0.2-1.0)
[2022-07-26 18:20] LABS: RBC,URINE 0-1 /HPF (0-1)
[2022-07-26 18:21] LABS: BACTERIA,URINE Rare /HPF (None Seen); SQUAMOUS EPITHELIAL CELL,UR Rare /HPF (0-2)
[2022-07-26] MEDS ORDERED: ASPIRIN 81MG CHEW TAB PO SCH (19:00)
[2022-07-26] MEDS ORDERED: MORPHINE 2 MG SYG IVP PRN (19:30)
[2022-07-26] MEDS ORDERED: ONDANSETRON 4MG INJ IVP PRN (19:30)
[2022-07-26] MEDS ORDERED: FOLI1TAB85 PO (20:32)
[2022-07-26] MEDS ORDERED: BUME1TAB6 PO (20:32)
[2022-07-26] MEDS ORDERED: OMEG100014 PO (20:32)
[2022-07-26] MEDS ORDERED: VITA0.4T20 PO (20:32)
[2022-07-26] MEDS ORDERED: VITAD50000 PO (20:32)
[2022-07-26] MEDS ORDERED: BISA5TAB12 PO (20:32)
[2022-07-26] MEDS ORDERED: CYCL30DR OP (20:32)
[2022-07-26] MEDS ORDERED: VIT1CAPS47 PO (20:32)
[2022-07-26] MEDS ORDERED: INSU500V SQ (20:32)
[2022-07-26] MEDS ORDERED: LATA7.5D OP (20:32)
[2022-07-26] MEDS ORDERED: CYAN250010 PO (20:32)
[2022-07-26] MEDS ORDERED: ASCO100031 PO (20:32)
[2022-07-26] MEDS ORDERED: UBID200C18 PO (20:32)
[2022-07-26] MEDS ORDERED: CARVEDILOL 6.25 MG TABLET PO ONE (21:47)
[2022-07-26] MEDS ORDERED: SIMVASTATIN 20 MG TABLET ONE (21:47)
[2022-07-27 03:50] VITALS: BP 110/50
[2022-07-27 05:31] LABS: HEMATOCRIT 33.5 % (36-48); MEAN CORPUSCULAR HEMOGLOBIN 30.9 pg (27.0-33.0); MEAN CORPUSCULAR HGB CONC 32.2 g/dL (32.0-36.0); MEAN CORPUSCULAR VOLUME 95.7 fL (79-99); RED BLOOD CELL COUNT(AUTO) 3.5 MIL/uL (4.00-5.50); RED CELL DISTRIBUTION WIDTH 12.3 % (11.0-15.5); WHITE BLOOD COUNT (AUTO) 10.6 K/uL (4.8-10.8)
[2022-07-27 06:07] LABS: ALBUMIN 3.6 g/dL (3.5-5.0); CREATININE 1.4 mg/dL (0.5-1.5); POTASSIUM 3.8 mmol/L (3.5-5.1); TOTAL PROTEIN, SERUM 6.8 g/dL (6.0-8.3)
[2022-07-27 08:52] VITALS: BP 146/50
[2022-07-27] MEDS: COQ PO SCH (09:00)
[2022-07-27] MEDS: **HM** VIT D3 2000 UNITS PO SCH ×2 (09:00→21:45)
[2022-07-27] MEDS: **HM**PRESERVISION AREDS PO SCH ×2 (09:00→21:44)
[2022-07-27] MEDS: LETROZOLE 2.5 MG PO SCH (09:00)
[2022-07-27] MEDS: **HM**(Cyclosporine (Restasis) 1 EACH OP SCH ×2 (09:00→21:00)
[2022-07-27] MEDS: INSULIN HUMULIN R 100 UNIT/ML 3ML SQ SCH ×3 (09:00→21:39)
[2022-07-27] MEDS: Vitamin B Complex/Vit C/Folic Acid PO SCH (09:52)
[2022-07-27] MEDS: CYANOCOBALAMIN (VITAMIN B-12) 1,000 MCG TABLET PO SCH (09:53)
[2022-07-27] MEDS: ASCORBIC ACID 500 MG TAB PO SCH (09:57)
[2022-07-27] MEDS: VITAMIN B COMPLEX 1 CAPSULE PO SCH (09:59)
[2022-07-27] MEDS: ISOSORBIDE MONO 30MG SR TAB PO SCH ×2 (09:59→21:37)
[2022-07-27] MEDS: BISACODYL 5 MG TABLET.DR PO SCH (10:00)
[2022-07-27] MEDS: RIVAROXABAN 15 MG TABLET PO SCH (10:00)
[2022-07-27] MEDS: FISH OIL 1000 MG/CAP PO SCH (10:01)
[2022-07-27] MEDS: CARVEDILOL 6.25 MG TABLET PO SCH ×2 (10:06→21:38)
[2022-07-27] MEDS: DIGOXIN 125 MCG TABLET PO SCH (10:07)
[2022-07-27] MEDS: BUMETANIDE 1 MG TAB PO SCH ×2 (10:12→11:50)
[2022-07-27 10:59] VITALS: BP 155/55
[2022-07-27 15:34] VITALS: BP 137/59
[2022-07-27] MEDS: **HM** NATEGLINIDE 60MG PO SCH (17:00)
[2022-07-27 20:00] VITALS: BP 158/55
[2022-07-27] MEDS ORDERED: LATANOPROST 2.5 ML DROPS OP SCH (21:00)
[2022-07-27] MEDS ORDERED: SIMVASTATIN 20 MG TABLET PO SCH (21:00)
[2022-07-28 00:10] VITALS: BP 138/55
[2022-07-28 04:00] VITALS: BP 139/59
[2022-07-28 08:00] VITALS: BP 123/57
[2022-07-28] MEDS: **HM**PRESERVISION AREDS PO SCH (09:00)
[2022-07-28] MEDS: ASCORBIC ACID 500 MG TAB PO SCH (09:00)
[2022-07-28] MEDS: COQ PO SCH (09:00)
[2022-07-28] MEDS: INSULIN HUMULIN R 100 UNIT/ML 3ML SQ SCH (09:00)
[2022-07-28] MEDS: **HM** VIT D3 2000 UNITS PO SCH (09:00)
[2022-07-28] MEDS: LETROZOLE 2.5 MG PO SCH (09:00)
[2022-07-28] MEDS: **HM**(Cyclosporine (Restasis) 1 EACH OP SCH (09:00)
[2022-07-28] MEDS: VITAMIN B COMPLEX 1 CAPSULE PO SCH (09:01)
[2022-07-28] MEDS: BISACODYL 5 MG TABLET.DR PO SCH (09:01)
[2022-07-28] MEDS: CYANOCOBALAMIN (VITAMIN B-12) 1,000 MCG TABLET PO SCH (09:02)
[2022-07-28] MEDS: FISH OIL 1000 MG/CAP PO SCH (09:04)
[2022-07-28] MEDS: RIVAROXABAN 15 MG TABLET PO SCH (09:05)
[2022-07-28] MEDS: Vitamin B Complex/Vit C/Folic Acid PO SCH (09:05)
[2022-07-28] MEDS: ISOSORBIDE MONO 30MG SR TAB PO SCH (09:05)
[2022-07-28] MEDS: BUMETANIDE 1 MG TAB PO SCH ×2 (09:09→11:34)
[2022-07-28] MEDS: DIGOXIN 125 MCG TABLET PO SCH (09:11)
[2022-07-28] MEDS: CARVEDILOL 6.25 MG TABLET PO SCH (09:13)
[2022-07-28 12:00] VITALS: BP 123/55
[2022-07-28 16:00] VITALS: BP 103/55
[2022-07-28] MEDS: **HM** NATEGLINIDE 60MG PO SCH (17:00)
== END 2022-07-28 18:31 | disposition home or self-care (01) ==
LOC: EDH 16:22 → EDHIP 19:03 → 3DH 07-27 04:00
PROVIDERS: ADMIT Internal Medicine Hematology & Oncology; ATTEND Internal Medicine Hematology & Oncology
DX: I24.9 Acute ischemic heart disease, unspecified (principal); J81.1 Chronic pulmonary edema; I12.9 Hypertensive chronic kidney disease with stage 1 through stage 4 chronic kidney disease, or unspecified chronic kidney disease; E11.22 Type 2 diabetes mellitus with diabetic chronic kidney disease; N18.30 Chronic kidney disease, stage 3 unspecified; I25.10 Atherosclerotic heart disease of native coronary artery without angina pectoris; E78.5 Hyperlipidemia, unspecified; I35.0 Nonrheumatic aortic (valve) stenosis; I48.20 Chronic atrial fibrillation, unspecified; Z79.01 Long term (current) use of anticoagulants; Z79.4 Long term (current) use of insulin; Z79.811 Long term (current) use of aromatase inhibitors; Z79.899 Other long term (current) drug therapy; Z95.0 Presence of cardiac pacemaker; Z95.1 Presence of aortocoronary bypass graft; Z86.73 Personal history of transient ischemic attack (TIA), and cerebral infarction without residual deficits
CPT/HCPCS: 99285; 82550 ×3; 83735; 83874 ×3; 84484 ×4; 80053 ×2; 83880; 85025; 81001; 36415 ×2; 71045; 93005 ×4; 85027; 82948 ×7; 93306; 93356; G0378 ×47; J1815 ×2

== ENCOUNTER → 2024-07-09 | Outpatient (CLI) | payer MEDICARE ==
[~2024-07-09] MED LIST changes: +ASCO100031 PO; +BISA-189 PO; +CYAN250010 PO; +CYCL30DR OP; +DIPH-1242 PO; -DIPH25 PO; +FOLI1TAB85 PO; +INSU500V SQ; +LATA7.5D OP; +OMEG100014 PO; +VIT1CAPS47 PO; +VITA0.4T20 PO; +VITAD50000 PO
== END | disposition home or self-care (01) ==
LOC: SHCH 11:03
PROVIDERS: ATTEND Internal Medicine Cardiovascular Disease
DX: I73.9 Peripheral vascular disease, unspecified (principal)
CPT/HCPCS: 93925

== ENCOUNTER → 2024-11-30 | Outpatient (CLI) | payer MEDICARE ==
[2024-11-30 12:11] LABS: BASOPHILS # (AUTO) 0.08 K/uL (0.00-0.20); BASOPHILS % (AUTO) 0.8 % (0.0-5.0); EOSINOPHILS # (AUTO) 0.13 K/uL (0.00-0.70); EOSINOPHILS % (AUTO) 1.3 % (0.0-8.0); IMMATURE GRANULOCYTE ABSOLUTE 0.04 K/uL (0-1); LYMPHOCYTES # (AUTO) 1.6 K/uL (1.0-4.8); LYMPHOCYTES % (AUTO) 16.2 % (21.0-51.0); MEAN CORPUSCULAR HEMOGLOBIN 32.2 pg (27.0-33.0); MEAN CORPUSCULAR HGB CONC 31.7 g/dL (32.0-36.0); MEAN CORPUSCULAR VOLUME 101.7 fL (79-99); MONOCYTES # (AUTO) 0.8 K/uL (0.1-1.0); MONOCYTES % (AUTO) 8.1 % (3.0-13.0); NEUTROPHILS # (AUTO) 7.1 K/uL (1.8-7.7); NEUTROPHILS % (AUTO) 73.2 % (40.0-77.0); PLATELET COUNT (AUTO) 183 K/uL (130-400); RED BLOOD CELL COUNT(AUTO) 3.54 MIL/uL (4.00-5.50); RED CELL DISTRIBUTION WIDTH 12.9 % (11.0-15.5); WHITE BLOOD COUNT (AUTO) 9.7 K/uL (4.8-10.8)
[2024-11-30 12:25] LABS: PROTHROMBIN TIME 11.2 SEC (9.6-11.6)
== END | disposition home or self-care (01) ==
LOC: LAB 08:32
PROVIDERS: ATTEND Internal Medicine Cardiovascular Disease
DX: I48.0 Paroxysmal atrial fibrillation (principal); I50.32 Chronic diastolic (congestive) heart failure
CPT/HCPCS: 36415; 85025; 85610